=== PATIENT | female | born 1990 | race Caucasian/White ===

== ENCOUNTER 2016-03-22 07:36 | Emergency (ER) | payer MEDICAID | END 2016-03-22 10:19 | disposition home or self-care (01) | LOC: ER 07:36 | DX: N93.9 Abnormal uterine and vaginal bleeding, unspecified (principal); N83.291 Other ovarian cyst, right side; Z79.2 Long term (current) use of antibiotics | CPT/HCPCS: 36415; 76830; 80053; 81001; 83690; 84703; 85025; 87491; 87591; 87800 ==